=== PATIENT | female | born 2005 | race Caucasian/White ===

== ENCOUNTER 2024-06-19 09:24 | Emergency (ER) | payer OTHER ==
[~2024-06-19] VITALS: Ht 3 cm; Wt 50.0 kg
[2024-06-19 09:38] VITALS: TEMP 97.8
[2024-06-19 10:26] LABS: URINE APPEARANCE TURBID (CLEAR/HAZY); URINE COLOR RED (YELLOW)
[2024-06-19 10:27] LABS: URINE GLUCOSE NEGATIVE (NEGATIVE); URINE KETONE 1+ (NEGATIVE); URINE PROTEIN(semi-quant) 3+ (NEGATIVE)
[2024-06-19 10:28] LABS: URINE BLOOD 3+ (NEGATIVE); URINE NITRATE POSITIVE (NEGATIVE)
[2024-06-19 10:29] LABS: COLLECTION METHOD CLEAN CATCH; URINE BACTERIA MODERATE /hpf (NONE SEEN)
[2024-06-19 12:01] LABS: PH 5.5 (5.0-8.5); URINE APPEARANCE TURBID (CLEAR/HAZY); URINE BLOOD 3+ (NEGATIVE); URINE COLOR Dark Yellow (YELLOW); URINE GLUCOSE NEGATIVE (NEGATIVE); URINE KETONE 1+ (NEGATIVE); URINE NITRATE NEGATIVE (NEGATIVE); URINE PROTEIN(semi-quant) 2+ (NEGATIVE)
[2024-06-19 12:09] LABS: COLLECTION METHOD CLEAN CATCH
[2024-06-19] MEDS ORDERED: MACROBID 1100 MG/CAP PO (12:50)
[2024-06-19] MEDS ORDERED: PYRIDIUM 100MG100 MG PO (12:50)
[2024-06-19 13:30] VITALS: BP 117/80; PULSE 74
== END 2024-06-19 13:31 | disposition home or self-care (01) ==
LOC: COL.ER 09:24
PROVIDERS: Physician Assistant
DX: N39.0 Urinary tract infection, site not specified (principal); F17.290 Nicotine dependence, other tobacco product, uncomplicated